=== PATIENT | female | born 1940 | race Asian ===

== ENCOUNTER 2020-05-12 18:03 | Inpatient (IN) | payer OTHER, SELFPAY ==
[~2020-05-12] VITALS: Ht 162.6 cm; Wt 60.8 kg
[~2020-05-12 18:03] MED LIST: AMLO5TAB1 PO; GLU500 PO; GLYB5TAB9 PO; ISOS5TAB PO; OLME5TAB PO; PIOG15TA48 PO; SULF1TAB12 PO
[2020-05-12 18:18] VITALS: BP 136/61
--- NOTE | 2020-05-12 18:18 | NUR ---
Pt to ER bed 5.
[2020-05-12] MEDS ORDERED: NACL 0.9% 500 ML IV SCH (18:30)
[2020-05-12] MEDS ORDERED: INSU300I2 SQ (18:49)
[2020-05-12] MEDS ORDERED: IRBE300T26 PO (18:49)
[2020-05-12] MEDS ORDERED: URSO300C14 PO (18:49)
[2020-05-12] MEDS ORDERED: GLIP-176 PO (18:49)
[2020-05-12] MEDS ORDERED: CANA300T PO (18:49)
[2020-05-12] MEDS ORDERED: SYN.05 PO (18:49)
--- NOTE | 2020-05-12 19:04 | NUR ---
Pt to CT scan via ramoret.
--- NOTE | 2020-05-12 19:05 | NUR ---
Pt up to commode for UA collection.
--- NOTE | 2020-05-12 19:05 | NUR ---
JANETT SWAB AND URINE SAMPLE COLLECTED AND WALKED TO LAB.
[2020-05-12 19:06] LABS: BASOPHILS % (AUTO) 0.2 % (0.0-2.0); EOSINOPHILS % (AUTO) 0.3 % (0.0-4.0); HEMATOCRIT 38.2 % (36-48); HEMOGLOBIN 12.5 g/dL (12.0-16.0); LYMPHOCYTES # (AUTO) 0.4 K/uL (2.5-16.5); LYMPHOCYTES % (AUTO) 5.1 % (20.5-51.1); MEAN CORPUSCULAR HEMOGLOBIN 29 pg (27-31); MEAN CORPUSCULAR HGB CONC 33 g/dL (33-37); MEAN CORPUSCULAR VOLUME 88.6 fL (80-94); MONOCYTES # (AUTO) 0.1 K/uL (0.8-1.0); MONOCYTES % (AUTO) 1.7 % (1.7-9.3); NEUTROPHILS # (AUTO) 6.7 K/uL (1.8-7.7); NEUTROPHILS % (AUTO) 92.7 % (42.2-75.2); PLATELET COUNT (AUTO) 176 K/uL (140-450); RED BLOOD CELL COUNT(AUTO) 4.31 MIL/uL (4.20-5.40); RED CELL DISTRIBUTION WIDTH 14.7 % (11.6-13.7); WHITE BLOOD COUNT (AUTO) 7.3 K/uL (4.8-10.8)
--- NOTE | 2020-05-12 19:21 | NUR ---
Report given to NADYA Mckeon, transfer of care.
[2020-05-12 19:22] LABS: PROTHROMBIN TIME 10.2 secs (10.8-13.4)
[2020-05-12 19:26] LABS: ALBUMIN 3.2 g/dL (3.4-5.0); ANION GAP 17.6 (8-16); ASPARTATE AMINOTRANSFERASE 35 U/L (15-37); CARBON DIOXIDE 19.9 mmol/L (21-32); CHLORIDE 100 mmol/L (98-107); CREATININE 1.6 mg/dL (0.6-1.3); GLUCOSE 180 mg/dL (74-106); POTASSIUM 3.5 mmol/L (3.5-5.1); SODIUM SERUM 134 mmol/L (136-145); TOTAL BILIRUBIN 1.8 mg/dL (0.0-1.0); UREA NITROGEN, BLOOD 35 mg/dL (7-18)
--- NOTE | 2020-05-12 19:35 | NUR ---
Pt assisted to bedside commode.
--- NOTE | 2020-05-12 19:40 | NUR ---
Pt assisted back into bed , connected to peat shredder tender, pulse ox and bp cuff. No acute distress noted.
[2020-05-12 19:44] LABS: APPEARANCE,URINE CLEAR (CLEAR); BILIRUBIN,URINE NEGATIVE (NEGATIVE); BLOOD, URINE 3+ (NEGATIVE); COLOR,URINE YELLOW (YELLOW); LEUKOCYTE ESTERASE ,URINE 2+ (NEGATIVE); NITRITE, URINE POSITIVE (NEGATIVE); UGLUCOSE 3+ (NEGATIVE)
--- NOTE | 2020-05-12 19:51 | NUR ---
PTS BHARGAVI ADAMES CALLED, SHE STATED THAT SHE WILL CALL BACK DURING CALLING HOURS TO OBTAIN INFORMATION OF PT STATUS
[2020-05-12 20:13] LABS: RBC,URINE 80-100 /HPF (0-5); WBC,URINE 16-25 (MOD) /HPF (0-5)
[2020-05-12] MEDS ORDERED: LEVOFLOXACIN 500 MG/D5W PREMIX 100 ML IV ONE (20:15)
[2020-05-12] MEDS ORDERED: ASPIRIN 81 MG TAB.CHEW PO ONE (21:05)
[2020-05-12] MEDS ORDERED: ASPIRIN 81 MG TAB.CHEW ONE (22:09)
--- NOTE | 2020-05-12 23:05 | NUR ---
Spoke w/ pt's granddaughter Migdalia & daughter , updated on pt status. They will be dropping off pt's phone.
--- NOTE | 2020-05-12 23:45 | NUR ---
Spoke w/ pt's family on speakerphone in pt's room. Per Family , pt wants to be discharged as soon as possible. Family was informed pt is going to be admitted and would have to sign a form against medical advice if she wished to leave. Per Family, pt will stay the night and reevaluate tomorrow.
--- NOTE | 2020-05-12 23:47 | NUR ---
Perineal care provide. Pt provided an additional blanket and repositioned for comfort.
--- NOTE | 2020-05-13 07:05 | NUR ---
Patient resting with eyes closed, visible rise and fall of the chest. Remains on bedside monitor. VSS
--- NOTE | 2020-05-13 07:31 | NUR ---
Report given to NADYA Mcclure for transfer of care.
[2020-05-13] MEDS ORDERED: DOCUSATE SODIUM 100 MG GELCAP PO PRN (08:30)
[2020-05-13] MEDS ORDERED: HYDROcodone/APAP 7.5/325 MG 1 TAB PO PRN (08:30)
[2020-05-13] MEDS ORDERED: IRBESARTAN 300 MG PO PRN (08:30)
[2020-05-13] MEDS ORDERED: POTASSIUM CHLORIDE 10 MEQ TABER PO PRN (08:30)
[2020-05-13] MEDS ORDERED: ONDANSETRON 4 MG/2 ML VIAL IM/IVP PRN (08:30)
[2020-05-13] MEDS ORDERED: ACETAMINOPHEN 325 MG TAB PO PRN (08:30)
[2020-05-13] MEDS ORDERED: DEXTROSE 50% 50 ML SYR IVP PRN (08:35)
[2020-05-13] MEDS ORDERED: INSULIN LISPRO SLIDING SCALE 100 UNITS/ML VIAL SUBQ PRN (08:35)
[2020-05-13] MEDS ORDERED: ISOSORBIDE DINITRATE 5 MG PO SCH (09:00)
[2020-05-13] MEDS ORDERED: OLMESARTAN MEDOXOMIL 5 MG PO SCH (09:00)
[2020-05-13] MEDS ORDERED: LOSARTAN 50 MG TAB PO SCH (09:00)
--- NOTE | 2020-05-13 09:20 | NUR ---
PATIENT HAS BEEN SCREENED AND CATEGORIZED MODERATE NUTRITION RISK. PATIENT WILL BE SEEN WITHIN 3-5 DAYS OF ADMISSION. 05/15/20 05/17/[address]
[2020-05-13] MEDS ORDERED: CRUSHER, PILL MC ONE (09:36)
[2020-05-13] MEDS: ECOTRIN 81 MG TABEC PO SCH (09:42)
[2020-05-13] MEDS: ISOSORBIDE DINITRATE 10 MG TAB PO SCH (09:42)
[2020-05-13] MEDS: amLODIPine 5 MG TAB PO SCH (09:43)
[2020-05-13] MEDS: LEVOTHYROXINE 0.05 MG TAB PO SCH (09:43)
--- NOTE | 2020-05-13 09:46 | NUR ---
Pericare completed, patient placed in new diaper, given warm blanket and repositioned for comfort. VSS.
--- NOTE | 2020-05-13 10:57 | NUR ---
SOCIAL WORK NOTE: Patient's Orientation Unable To Assess Information Provided By ZACARIAS MARKS - GRANDDAUGHTER Comments SW WAS UNABLE TO MEET PATIENT AT BEDSIDE TO COMPLETE ASSESSMENT. SW CONTACTED EMERGENCY CONTACT FELIAmelie MCKEON AND LEFT VM. SW CONTACTED PATIENT HOME PHONE AND SPOKE TO ZACARIAS MARKS [phone]. Java Core Developer, Realtionship and Phone Number FELI MCKEON CHILD [phone] Healthcare Power of Community Recreation Coordinator No Does Patient Have a POLST No Identifying Problems No Social Work Triggers Is A Social Work Consult Needed No Mandate Report Filed No Explanation Of Identifying Problems PATIENT IS AN 80-YEAR-OLD FEMALE ADMITTED FOR NSTEMI. PATIENT HAS PMHX OF DIABETES, HYPERTENSION, AND THYROID DISEASE. Admitted From Home Pre-Admission Level Of Functioning Status Assist With ADL Level Of Functioning Comment PER GRANDDAUGHTER, FAMILY ASSISTS WITH ALL ADLS. Prior Resources/Services Used In Last 12 Months [facility] Prior DME Walker Wheelchair Dialysis Comments N/A Living Situation Lives With Family House Patient Had Caregiver Yes Name and Contact Number Of Designated Caregiver DIANA MARKS - SON - [phone] Home Support CG/Fam Able To Meet Need Financial Issues No Known Financial Issue Referral To The Financial Counselor Needed No Factors/Needs No D/C Needs Identified Pt/Rep Participated In Discharge Plan Yes Patient/Family Agress With Discharge Plan Yes Discharge Plan Comments TENTATIVE DISCHARGE PLAN IS FOR PATIENT TO RETURN HOME. DC Plan Status Initiated
--- NOTE | 2020-05-13 12:00 | NUR ---
RESTING WITH EYES OPEN, IS VERY PLEASANT AND SMILING. ASSISTED WITH POSITIONING FOR COMFORT. ACCUCHECK = 64. NO COVERAGE GIVEN
[2020-05-13] MEDS: BLOOD GLUCOSE MONITORING 1 DEV DEV FS SCH ×3 (12:21→21:00)
[2020-05-13] MEDS: NACL 0.9% 1,000 ML IV SCH (13:00)
--- NOTE | 2020-05-13 13:45 | NUR ---
16 FR F/C INSERTED WITH IMMEDIATE RETURN CLOUDY LUCIO COLORED URINE
[2020-05-13] MEDS ORDERED: cefTRIAXone 1,000 MG VIAL ONE (16:53)
--- NOTE | 2020-05-13 18:00 | NUR ---
AWAKE AND ALERT. SPEAKING WITH FAMILY ON PHONE APPEARS IN NAD. ACCUCHECK = 110
[2020-05-13 18:16] LABS: CHOL/HDL RATIO 2.5 (1-4.5); FREE T4 (FREE THYROXINE) 1.57 ng/dL (0.76-1.46); MAGNESIUM 2.2 mg/dL (1.8-2.4); THYROID STIMULATING HORMONE 0.78 uIU/mL (0.34-3.74)
--- NOTE | 2020-05-13 19:25 | NUR ---
PT GRANDSON JOSELINE CALLED TO ADV THAT PT WANTS TO GO AMA. ADV GRANDSON OF PT CONDITION AND HE AGREED TO HONOR PT WISHES. AMA FORM GIVEN TO PRIMARY NURSE.
--- NOTE | 2020-05-13 19:30 | NUR ---
SPOKE TO PT'S MALLIKA TREVIZO, ADVISED THAT PT WANTS TO LEAVE AMA. EXPLAINED THE CONSEQUENCES IF PT LEAVES AND WE AR NOT ABLE TO PROVIDE PT WITH PRESCRIPTIONS IF SHE LEAVES AMA. JOSELINE SAID HE WILL SPEAK WITH HS GRANDMOTHER AGAIN. ADVISED DR YOUNG OF SITUATION
--- NOTE | 2020-05-13 19:31 | NUR ---
RECEIVED REPORT FROM ANAND
--- NOTE | 2020-05-13 19:59 | NUR ---
JOSELINE CALLED BACK AND SPOKE WITH TECH. PT WILL NOW BE STAYING
--- NOTE | 2020-05-13 20:45 | NUR ---
Sarahy chris in [facility] - 05/13/20 at 2108 by JOSE DE JESUS PT ANGIE
--- NOTE | 2020-05-13 21:26 | NUR ---
Patient will be admitted to care of DR YOUNG. Admited to TELE. Will go to room 126B. Belongings list completed. Report to BASIL COVINGTON
--- NOTE | 2020-05-13 21:55 | NUR ---
RECEIVED PT FROM ED, PT A&O X4, VERBAL, TELUGU/CANTONESE SPEAKING, NO SOB/ DISTRESS, ON ROOM AIR, NO C/O PAIN AT THIS TIME, SKIN IS INTACT, WITH IV PERIPHERAL LINE ON THE LT FA W/O INFILTRATION. F/C INTACT & DRAINING WELL WITH CLOUDY YELLOW URINE.
[2020-05-14] MEDS: NACL 0.9% 1,000 ML IV SCH ×3 (00:45→16:26)
[2020-05-14 04:00] VITALS: BP 152/68
[2020-05-14 06:07] LABS: BASOPHILS % (AUTO) 0.3 % (0.0-2.0); EOSINOPHILS # (AUTO) 0.1 K/uL (0-0.4); HEMATOCRIT 38.6 % (36-48); HEMOGLOBIN 12.6 g/dL (12.0-16.0); LYMPHOCYTES # (AUTO) 0.9 K/uL (2.5-16.5); LYMPHOCYTES % (AUTO) 9.7 % (20.5-51.1); MEAN CORPUSCULAR HEMOGLOBIN 29 pg (27-31); MEAN CORPUSCULAR HGB CONC 33 g/dL (33-37); MEAN CORPUSCULAR VOLUME 89.5 fL (80-94); MONOCYTES # (AUTO) 1.3 K/uL (0.8-1.0); MONOCYTES % (AUTO) 13.8 % (1.7-9.3); NEUTROPHILS # (AUTO) 6.9 K/uL (1.8-7.7); NEUTROPHILS % (AUTO) 75.2 % (42.2-75.2); PLATELET COUNT (AUTO) 179 K/uL (140-450); RED BLOOD CELL COUNT(AUTO) 4.31 MIL/uL (4.20-5.40); RED CELL DISTRIBUTION WIDTH 14.7 % (11.6-13.7); WHITE BLOOD COUNT (AUTO) 9.2 K/uL (4.8-10.8)
[2020-05-14] MEDS: BLOOD GLUCOSE MONITORING 1 DEV DEV FS SCH ×4 (06:36→21:00)
[2020-05-14 06:39] LABS: CREATININE 1.2 mg/dL (0.6-1.3); GLUCOSE 107 mg/dL (74-106); UREA NITROGEN, BLOOD 24 mg/dL (7-18)
[2020-05-14 06:52] LABS: MAGNESIUM 2.2 mg/dL (1.8-2.4); PHOSPHORUS 3.7 mg/dL (2.5-4.9)
--- NOTE | 2020-05-14 07:20 | NUR ---
RECEIVED PT FROM CODING SUPPORT SPECIALIST NURSE, PT IS RESTING IN BED, ON ROOM AIR, IV NOTED TO LFA 20G AT NS 75ML/HR, CONTINENT, SAFETY AND FALL PRECAUTIONS IN PLACE, WILL CONTINUE TO MONITOR.
[2020-05-14 07:21] LABS: CARBON DIOXIDE 21.1 mmol/L (21-32); CHLORIDE 105 mmol/L (98-107); POTASSIUM 4.1 mmol/L (3.5-5.1); SODIUM SERUM 138 mmol/L (136-145)
[2020-05-14 08:00] VITALS: BP 136/66
[2020-05-14 08:07] LABS: T4 (THYROXINE) 8.9 ug/dL (4.5-12.0)
[2020-05-14] MEDS: ECOTRIN 81 MG TABEC PO SCH (09:51)
[2020-05-14] MEDS: LEVOTHYROXINE 0.05 MG TAB PO SCH (09:52)
[2020-05-14] MEDS: METOPROLOL SUCCINATE 50 MG TABER PO SCH (09:53)
[2020-05-14] MEDS: ISOSORBIDE DINITRATE 10 MG TAB PO SCH (09:53)
[2020-05-14] MEDS: amLODIPine 5 MG TAB PO SCH (09:54)
--- NOTE | 2020-05-14 10:00 | NUR ---
MORNING MEDICATIONS ADMINISTERED, BP 158/78, HR 88, NO SIGNS OF DISTRESS NOTED, PT AT BEDSIDE, WILL CONTINUE TO MONITOR.
[2020-05-14 12:00] VITALS: BP 130/54
--- NOTE | 2020-05-14 15:05 | NUR ---
DISCHARGE PLANNING: RECEIVED A CALL FROM SHEN LEO OF [facility] [phone] YOUNG'S NUMBER FOR A DOC TO DOC CALL. SHE STATED THAT THEY WILL BE TRANSFERRING THIS PATIENT TO THEIR IN NETWORK FACILITY ([place]) PENDING COVID PCR RESULTS. INFORMED HER THAT THE RESULTS IS STILL PENDING AND IT MIGHT COME OUT LATER TODAY OR TOMORROW. SHE STATED ONCE THE RESULT IS IN TO CALL THEIR CLIENT SERVICE ADMINISTRATOR AT [phone]. SHE PROVIDED ME WITH TRANSPORT AUTH [id number]. I ALSO ASKED FOR THE AUTH, SHE PROVIDED ME WITH AUTH [id number] PENDING CONCURRENT REVIEW HOWEVER INITIAL REVIEW WAS APPROVED BY THEIR ACTIVITY AID. DR. YOUNG MADE AWARE. PER DR. YOUNG HE DID PEER TO PEER YESTERDAY. SHEN LEO MADE AWARE, SHE STATED IT'S A NEW HOSPITALIST TODAY DR. ERIC AND WILL BE CALLING DR. YOUNG. PROVIDED HER OF DR. YOUNG'S NUMBER. DR. YOUNG MADE AWARE THAT DR. ERIC WILL CONTACTING HIM FOR PEER TO PEER. Addendum: 05/14/20 at 1540 by Luz Marina Moreira CM DC CASING MIXER: SET UP WILL CALL TRANSPORTATION WITH [facility] [phone]. AUTH [id number] Addendum: 05/15/20 at 1140 by Luz Marina Moreira CM ЮЛИЯ RAMSEY: RECEIVED ORDER FOR HOME HEALTH FOR PT AND HOME SAFETY EVBRYANNA. FAXED TO [facility] WILL FOLLOW UP WITH SHEN LEO [phone] Addendum: 05/15/20 at 1146 by Luz Marina Moreira CM ЮЛИЯ RAMSEY: SPOKE TO SHEN LEO AT [facility] SHE IS GOING TO HAVE HER COORDINATOR DAVID [phone] WORK ON THE REFERRAL FOR HOME HEALTH. Addendum: 05/15/20 at 1251 by Luz Marina Moreira CM DC CASING MIXER: RECEIVED A CALL BACK FROM DAVID AT [facility]. PATIENT [phone]. NOTIFIED NADYA DASILVA Addendum: 05/15/20 at 1402 by Elba Winston CM SPOKE TO PATIENT'S GRANDSON JOSELINE MARKS [phone] REGARDING DC PLAN WITH [facility] AND IS IN AGREEMENT. INFORMED HIM THAT WE HAVE AN ACCEPTING ONE [facility]. PROVIDED HIM THE PHONE NUMBER FOR [facility] [phone]. HE STATED THAT THEY ARE ABLE TO CORRECTIONAL TREATMENT SPECIALIST THE PATIENT ANYTIME. CHARGE NURSE MADE AWARE.
[2020-05-14 16:00] VITALS: BP 127/61
--- NOTE | 2020-05-14 16:44 | NUR ---
SCHEDULED MEDICATIONS PROVIDED, PT IS RESTING IN BED, EDUCATION PROVIDED, NO SIGNS OF DISTRESS NOTED, WILL CONTINUE TO MONITOR.
[2020-05-14] MEDS ORDERED: ATORVASTATIN 20 MG TAB PO SCH (17:00)
--- NOTE | 2020-05-14 19:20 | NUR ---
ENDORSED PT TO STONE SAWYER NURSE FOR CONTINUITY OF CARE.
--- NOTE | 2020-05-14 19:21 | NUR ---
RECEIVED BEDSIDE ENDORSEMENT FROM AM SHIFT RN, AWAKE AND ALERT, ABLE TO MAKE NEEDS KNOWN, PT CAN'T SPEAK FRENCH, ON ROOM AIR, NO DISTRESS, SAFETY MEASURES IN PLACE, BRANDT CATH IN PLACE, PLAN OF CARE DISCUSSED, CALL LIGHT WITHIN REACH.
[2020-05-14 20:00] VITALS: BP 116/56
--- NOTE | 2020-05-14 22:24 | NUR ---
BS 146, NO INSULIN GIVEN, NO SOB, CALL LIGHT WITHIN REACH.
[2020-05-15] VITALS: BP 134/66
--- NOTE | 2020-05-15 02:55 | NUR ---
RECEIVED A CALL FROM SHEN SHEPARD OF [facility], SHE TOLD ME THAT PT CAN POSSIBLY TRANSFER ON 05/16/20 IN THE AFTERNOON BECAUSE THERE IS CURRENTLY NO BED AVAILABLE IN [facility]. ALSO INFORMED HER THAT PT IS COVID PCR NEGATIVE.
[2020-05-15 04:00] VITALS: BP 141/71
[2020-05-15] MEDS: BLOOD GLUCOSE MONITORING 1 DEV DEV FS SCH ×2 (06:05→12:16)
--- NOTE | 2020-05-15 06:05 | NUR ---
PT AWAKE, BLOOD SUGAR 122, NO COV NEEDED, NO DISTRESS, CALL LIGHT WITHIN REACH, URINE SAMPLE TAKEN.
[2020-05-15 06:44] LABS: BASOPHILS % (AUTO) 0.3 % (0.0-2.0); EOSINOPHILS # (AUTO) 0.1 K/uL (0-0.4); EOSINOPHILS % (AUTO) 1.6 % (0.0-4.0); HEMATOCRIT 39.2 % (36-48); HEMOGLOBIN 12.7 g/dL (12.0-16.0); LYMPHOCYTES % (AUTO) 13.2 % (20.5-51.1); MEAN CORPUSCULAR HEMOGLOBIN 29 pg (27-31); MEAN CORPUSCULAR HGB CONC 33 g/dL (33-37); MEAN CORPUSCULAR VOLUME 89.4 fL (80-94); MONOCYTES % (AUTO) 12.8 % (1.7-9.3); NEUTROPHILS # (AUTO) 5.6 K/uL (1.8-7.7); NEUTROPHILS % (AUTO) 72.1 % (42.2-75.2); PLATELET COUNT (AUTO) 200 K/uL (140-450); RED BLOOD CELL COUNT(AUTO) 4.39 MIL/uL (4.20-5.40); RED CELL DISTRIBUTION WIDTH 14.5 % (11.6-13.7); WHITE BLOOD COUNT (AUTO) 7.8 K/uL (4.8-10.8)
--- NOTE | 2020-05-15 07:20 | NUR ---
PT STABLE, NO SOB, NO DISTRESS, NO ACUTE CHANGES THE WHOLE SHIFT, BEDSIDE ENDORSEMENT GIVEN TO AM SHIFT RN FOR CONTINUITY OF CARE.
[2020-05-15 07:22] LABS: ANION GAP 13.7 (8-16); CARBON DIOXIDE 25.4 mmol/L (21-32); CHLORIDE 106 mmol/L (98-107); CREATININE 1.1 mg/dL (0.6-1.3); GLUCOSE 137 mg/dL (74-106); POTASSIUM 4.1 mmol/L (3.5-5.1); SODIUM SERUM 141 mmol/L (136-145); UREA NITROGEN, BLOOD 18 mg/dL (7-18)
--- NOTE | 2020-05-15 07:30 | NUR ---
RECEIVED REPORT FROM SEQUINS STRINGER RN. POC REVIEWED AND DISCUSSED. PT IS RESTING AND CALM. DENIES DISCOMFORT. NO SOB. DENIES CHEST PAIN. PIV INTACT. AFEBRILE. WILL CONTINUE TO MONITOR.
[2020-05-15] MEDS: amLODIPine 5 MG TAB PO SCH (08:42)
[2020-05-15] MEDS: ISOSORBIDE DINITRATE 10 MG TAB PO SCH (08:43)
[2020-05-15] MEDS: METOPROLOL SUCCINATE 50 MG TABER PO SCH (08:43)
[2020-05-15] MEDS: LEVOTHYROXINE 0.05 MG TAB PO SCH (08:44)
[2020-05-15] MEDS: ECOTRIN 81 MG TABEC PO SCH (08:44)
[2020-05-15 11:23] LABS: BILIRUBIN,URINE NEGATIVE (NEGATIVE); BLOOD, URINE 3+ (NEGATIVE); COLOR,URINE YELLOW (YELLOW); LEUKOCYTE ESTERASE ,URINE 1+ (NEGATIVE); NITRITE, URINE NEGATIVE (NEGATIVE); UGLUCOSE 3+ (NEGATIVE)
[2020-05-15] MEDS ORDERED: ATOR40TA PO (11:25)
[2020-05-15] MEDS ORDERED: CEPH250C16 PO (11:25)
[2020-05-15] MEDS ORDERED: METO25TA PO (11:25)
[2020-05-15] MEDS ORDERED: ASPI-1822 PO (11:28)
[2020-05-15 11:50] LABS: APPEARANCE,URINE SLIGHTLY HAZY (CLEAR)
[2020-05-15 11:54] LABS: RBC,URINE 11-20 (MOD) /HPF (0-5)
--- NOTE | 2020-05-15 12:00 | NUR ---
PT IS RESTING, EYES CLOSED. KEPT ON FALL PRECAUTION.
--- NOTE | 2020-05-15 15:00 | NUR ---
SPOKE TO PT'S FAMILY ON PT'S DISCHARGE. PT WILL BE SENT HOME WITH HOME HEALTH, FAMILY DEMONSTRATED UNDERSTANDING.
--- NOTE | 2020-05-15 16:00 | NUR ---
DISCHARGED PT WITH NO S/S OF DISTRESS. ACCOMPANIED PT TO FRONT LOBBY.
[2020-05-16 02:21] LABS: CREATININE,URINE RANDOM 34 mg/dL (30-125); URINE SODIUM, RANDOM 123 mmol/l (40-220)
== END 2020-05-15 16:00 | disposition home health service (06) | DRG 871 ==
LOC: MED 18:03 → MTU 05-13 02:40 → MMU 05-13 19:07
PROVIDERS: ADMIT Emergency Medicine; ATTEND Emergency Medicine
DX: A41.9 Sepsis, unspecified organism (principal); I21.4 Non-ST elevation (NSTEMI) myocardial infarction; N17.0 Acute kidney failure with tubular necrosis; E87.2 Acidosis; N13.6 Pyonephrosis; E11.22 Type 2 diabetes mellitus with diabetic chronic kidney disease; I12.9 Hypertensive chronic kidney disease with stage 1 through stage 4 chronic kidney disease, or unspecified chronic kidney disease; N18.9 Chronic kidney disease, unspecified; K80.20 Calculus of gallbladder without cholecystitis without obstruction; I25.10 Atherosclerotic heart disease of native coronary artery without angina pectoris; E03.9 Hypothyroidism, unspecified; M16.10 Unilateral primary osteoarthritis, unspecified hip; Z20.822 Contact with and (suspected) exposure to COVID-19; Z79.899 Other long term (current) drug therapy; Z79.84 Long term (current) use of oral hypoglycemic drugs; Z87.442 Personal history of urinary calculi
CPT/HCPCS: 36415; 51702; 71045; 76770; 80048; 80053; 81001; 82570; 82948; 83036; 83605; 83690; 83735; 83880; 84100; 84300; 84436; 84439; 84443; 84479; 84484; 85025; 85610; 85730; 87040; 87081; 87086; 93005; 96365; 97110; 97116; 97161-GP; 97530; 99285; J0696; J1956; J7030; J7060; U0003